=== PATIENT | female | born 1990 | race Two or more races ===

== ENCOUNTER 2022-11-17 15:25 | Outpatient (CLI) | payer OTHER | END 2022-11-17 17:58 | disposition home or self-care (01) | LOC: PRENATAL 15:25 | PROVIDERS: ATTEND Obstetrics & Gynecology Maternal & Fetal Medicine | DX: O36.80X0 Pregnancy with inconclusive fetal viability, not applicable or unspecified (principal); Z36.9 Encounter for antenatal screening, unspecified; Z36.82 Encounter for antenatal screening for nuchal translucency; Z3A.12 12 weeks gestation of pregnancy ==

== ENCOUNTER 2023-01-12 08:00 | Outpatient (CLI) | payer OTHER | END 2023-01-12 09:26 | disposition home or self-care (01) | LOC: PRENATAL 08:00 | PROVIDERS: ATTEND Obstetrics & Gynecology Maternal & Fetal Medicine | DX: O35.3XX0 Maternal care for (suspected) damage to fetus from viral disease in mother, not applicable or unspecified (principal); O34.80 Maternal care for other abnormalities of pelvic organs, unspecified trimester; O43.90 Unspecified placental disorder, unspecified trimester; O44.00 Complete placenta previa NOS or without hemorrhage, unspecified trimester; Z3A.20 20 weeks gestation of pregnancy ==

== ENCOUNTER 2023-02-28 10:26 | Emergency (ER) | payer OTHER ==
[~2023-02-28] VITALS: Ht 165.1 cm; Wt 71.7 kg
[2023-02-28] MEDS ORDERED: ALLEGRA ALLERG180 MG PO (10:59)
[2023-02-28] MEDS ORDERED: DUI500 PO (10:59)
== END 2023-02-28 13:41 | disposition home or self-care (01) ==
LOC: ER 10:27
DX: O26.892 Other specified pregnancy related conditions, second trimester (principal); Z3A.27 27 weeks gestation of pregnancy; S90.464A Insect bite (nonvenomous), right lesser toe(s), initial encounter; W57.XXXA Bitten or stung by nonvenomous insect and other nonvenomous arthropods, initial encounter; Y93.9 Activity, unspecified; Y92.9 Unspecified place or not applicable; Y99.9 Unspecified external cause status

== ENCOUNTER 2023-03-09 09:35 | Outpatient (CLI) | payer OTHER ==
[~2023-03-09 09:35] MED LIST: ALLEGRA ALLERG180 MG PO; DUI500 PO
== END 2023-03-09 09:38 | disposition home or self-care (01) ==
LOC: PRENATAL 09:35
PROVIDERS: ATTEND Obstetrics & Gynecology Maternal & Fetal Medicine
DX: O26.849 Uterine size-date discrepancy, unspecified trimester (principal); O34.80 Maternal care for other abnormalities of pelvic organs, unspecified trimester; O43.90 Unspecified placental disorder, unspecified trimester; Z3A.28 28 weeks gestation of pregnancy

== ENCOUNTER 2023-04-02 14:41 | Outpatient (CLI) | payer OTHER ==
[2023-04-02] MEDS ORDERED: PRENATAL TABLE1 EAC4 PO (14:53)
[2023-04-02 15:24] LABS: HEMATOCRIT 35.9 % (36.0-45.00); MEAN CELL VOLUME 94.9 fL (80.00-100.00); MEAN CORPUSCULAR HEMOGLOBIN 31.8 pg (27.00-32.0); MEAN CORPUSCULAR HGB CONC 33.5 g/dl (32.0-36.0); PH,URINE 6.5 (5.0-8.0); PLATELET COUNT 263 K/uL (150-450); RED BLOOD COUNT 3.78 M/uL (4.00-6.00); RED CELL DISTRIBUTION WIDTH 12.9 % (11.5-14.5); URINE APPEARANCE Cloudy; URINE BILIRRUBIN Negative (NEGATIVE); URINE BLOOD Large; URINE COLOR Orange; URINE GLUCOSE Negative (NEGATIVE); URINE LEUKOCYTE Trace; URINE NITRATE Negative; URINE PROTEIN 30 (NEGATIVE); URINE UROBILINOGEN 0.2 E.U./dl
[2023-04-02 15:28] LABS: URINE BACTERIA 1421.1 uL (0.0-1933); URINE EPITHELIAL CELLS 81.7 uL (0.0-38.8); URINE RBC 338.5 uL (0.0-20.8); URINE WBC 24.7 uL (0.0-23.2)
[2023-04-02 15:49] LABS: URINE YEAST NEGATIVE /hpf
== END 2023-04-04 08:08 | disposition home or self-care (01) ==
LOC: OBS/DEL 14:41
PROVIDERS: Specialist; ATTEND Student in an Organized Health Care Education/Training Program
DX: O26.893 Other specified pregnancy related conditions, third trimester (principal); Z3A.31 31 weeks gestation of pregnancy

== ENCOUNTER 2023-04-13 09:24 | Outpatient (CLI) | payer OTHER ==
[~2023-04-13 09:24] MED LIST changes: +PRENATAL TABLE1 EAC4 PO
== END 2023-04-13 09:26 | disposition home or self-care (01) ==
LOC: PRENATAL 09:24
PROVIDERS: ATTEND Obstetrics & Gynecology Maternal & Fetal Medicine
DX: O26.849 Uterine size-date discrepancy, unspecified trimester (principal); O36.8199 Decreased fetal movements, unspecified trimester, other fetus; O43.90 Unspecified placental disorder, unspecified trimester; O26.859 Spotting complicating pregnancy, unspecified trimester; Z3A.33 33 weeks gestation of pregnancy

== ENCOUNTER 2023-05-06 11:20 | Outpatient (CLI) | payer OTHER | END 2023-05-06 11:22 | disposition home or self-care (01) | LOC: PRENATAL 11:20 | PROVIDERS: ATTEND Obstetrics & Gynecology Maternal & Fetal Medicine | DX: O26.849 Uterine size-date discrepancy, unspecified trimester (principal); O36.8199 Decreased fetal movements, unspecified trimester, other fetus; O34.80 Maternal care for other abnormalities of pelvic organs, unspecified trimester; O43.90 Unspecified placental disorder, unspecified trimester; O36.5990 Maternal care for other known or suspected poor fetal growth, unspecified trimester, not applicable or unspecified; Z3A.36 36 weeks gestation of pregnancy ==

== ENCOUNTER 2023-05-23 13:45 | Inpatient (IN) | payer OTHER ==
[~2023-05-23] VITALS: Ht 165.1 cm; Wt 79.8 kg
[2023-05-23 16:44] LABS: PH,URINE 6.5 (5.0-8.0); URINE APPEARANCE Cloudy; URINE BILIRRUBIN Negative (NEGATIVE); URINE BLOOD Negative; URINE COLOR Yellow; URINE GLUCOSE Negative (NEGATIVE); URINE LEUKOCYTE Trace; URINE NITRATE Negative; URINE PROTEIN Negative (NEGATIVE); URINE UROBILINOGEN 0.2 E.U./dl
[2023-05-23 16:45] LABS: URINE BACTERIA 5410.2 uL (0.0-1933); URINE EPITHELIAL CELLS 68.6 uL (0.0-38.8); URINE RBC 4.4 uL (0.0-20.8); URINE WBC 100.8 uL (0.0-23.2)
[2023-05-23 16:48] LABS: HEMATOCRIT 37.2 % (36.0-45.00); HEMOGLOBIN 12.8 g/dL (12.0-15.00); MEAN CELL VOLUME 95.2 fL (80.00-100.00); MEAN CORPUSCULAR HEMOGLOBIN 32.7 pg (27.00-32.0); MEAN CORPUSCULAR HGB CONC 34.4 g/dl (32.0-36.0); PLATELET COUNT 235 K/uL (150-450); RED BLOOD COUNT 3.91 M/uL (4.00-6.00); RED CELL DISTRIBUTION WIDTH 13.2 % (11.5-14.5)
[2023-05-23 17:03] LABS: INR < 0.93; PARTIAL THROMBOPLASTIN TIME 32.1 SECONDS (22.0-34.0); PROTHROMBIN TIME 9.6 SECONDS (9.0-11.5)
[2023-05-23 17:10] LABS: ALBUMIN 2.8 gm/dL (3.4-5.0); BILIRUBIN TOTAL 0.58 mg/dL (0.3-1.2); CALCIUM 9.1 mg/dL (8.5-10.1); CREATININE SERUM 0.72 mg/dL (0.55-1.02); GFR 93.87; GLOBULINA 3.7 G/DL (2.4-3.5); POTASSIUM 4.26 mEq/L (3.5-5.1); TOTAL PROTEIN 6.5 gm/dL (6.4-8.2)
[2023-06-05] MEDS ORDERED: AMPICILLIN SODIUM 2,000 MG VIAL ONE (13:31)
[2023-06-05] MEDS ORDERED: AMPICILLIN SODIUM 2,000 MG VIAL IV ONE (14:00)
[2023-06-05] MEDS ORDERED: RINGERS SOLUTION,LACTATED 1,000 ML IV SCH (14:00)
[2023-06-05] MEDS ORDERED: LIDOCAINE HCL 1% 200MG/20ML VIAL IJ ONE (14:07)
[2023-06-05] MEDS ORDERED: OXYTOCIN 20 UNITS/1000ML RL PIGGYBAG IV ONE (14:07)
[2023-06-05] MEDS ORDERED: CHLORHEXIDINE GLUCONATE 120 ML BOTTLE TOP ONE (14:07)
[2023-06-05] MEDS ORDERED: ERYTHROMYCIN BASE 1 GM TUBE OP ONE (14:07)
[2023-06-05] MEDS ORDERED: AMPICILLIN SODIUM 1,000 MG VIAL IV SCH (17:00)
[2023-06-05] MEDS ORDERED: OXYTOCIN 20 UNITS/500ML RL PIGGYBAG IV ONE (19:10)
[2023-06-05] MEDS ORDERED: OXYTOCIN 500 ML IV SCH (19:30)
[2023-06-06] MEDS ORDERED: OXYTOCIN 10 UNITS/ML VIAL ONE (02:03)
[2023-06-06] MEDS ORDERED: ERYTHROMYCIN BASE 3.5 GM OINT...G. OP ONE (02:04)
[2023-06-06] MEDS ORDERED: CEFAZOLIN SODIUM 1,000 MG VIAL IV STA (02:23)
[2023-06-06] MEDS ORDERED: ERYTHROMYCIN BASE 1 GM TUBE OP ONE (02:30)
[2023-06-06] MEDS ORDERED: OXYTOCIN 10 UNITS/ML VIAL IV ONE (02:30)
[2023-06-06] MEDS ORDERED: MEPERIDINE HCL/PF 25 MG/ML VIAL IV PRN (03:15)
[2023-06-06] MEDS ORDERED: ONDANSETRON HCL 2 MG/ML VIAL IV ONE (03:15)
[2023-06-06] MEDS ORDERED: MORPHINE SULFATE 4 MG in 0.9 % SODIUM CHLORIDE 9 ML IV PRN (03:15)
[2023-06-06] MEDS ORDERED: MEPERIDINE HCL/PF 50 MG/ML VIAL IM PRN (04:30)
[2023-06-06] MEDS ORDERED: OXYTOCIN 1,000 ML IV SCH (05:00)
[2023-06-06] MEDS ORDERED: PROMETHAZINE HCL 25 MG/ML AMPUL IM SCH (05:00)
[2023-06-06 15:28] LABS: HEMATOCRIT 29.3 % (36.0-45.00); HEMOGLOBIN 10.1 g/dL (12.0-15.00); MEAN CELL VOLUME 97.1 fL (80.00-100.00); MEAN CORPUSCULAR HEMOGLOBIN 33.6 pg (27.00-32.0); MEAN CORPUSCULAR HGB CONC 34.6 g/dl (32.0-36.0); PLATELET COUNT 192 K/uL (150-450); RED BLOOD COUNT 3.01 M/uL (4.00-6.00); RED CELL DISTRIBUTION WIDTH 12.9 % (11.5-14.5)
[2023-06-06] MEDS ORDERED: SIMETHICONE 125 MG CAPSULE PO SCH (18:00)
[2023-06-06] MEDS ORDERED: OxyCODONE HCL/APAP UD (PERCOCET) PO PRN (21:00)
[2023-06-07] MEDS ORDERED: DOCUSATE SODIUM 100MG CAP PO SCH (09:00)
[2023-06-07] MEDS ORDERED: PNV,CALCIUM 72/IRON/FOLIC ACID 1 TAB TABLET PO SCH (09:00)
[2023-06-09] MEDS ORDERED: IBU800 MG PO (08:13)
[2023-06-09] MEDS ORDERED: COLACE100 MG PO (08:13)
[2023-06-09] MEDS ORDERED: SIMETHICONE125 M1 PO (08:14)
== END 2023-06-09 13:57 | disposition home or self-care (01) | DRG 788 ==
LOC: OB/GYN 06-01 13:45 → LDR 06-05 13:11 → OB/GYN 06-06 04:49
PROVIDERS: ADMIT Obstetrics & Gynecology; ATTEND Obstetrics & Gynecology
PROC: 4A1HXCZ Monitoring of Products of Conception, Cardiac Rate, External Approach (ICD-10-PCS; 2023-06-05)
PROC: 10D00Z1 Extraction of Products of Conception, Low, Open Approach (ICD-10-PCS; principal; 2023-06-06 01:30)
DX: O62.1 Secondary uterine inertia (principal); O43.123 Velamentous insertion of umbilical cord, third trimester; O43.193 Other malformation of placenta, third trimester; O99.824 Streptococcus B carrier state complicating childbirth; O48.0 Post-term pregnancy; Z3A.40 40 weeks gestation of pregnancy; Z37.0 Single live birth; Z20.822 Contact with and (suspected) exposure to COVID-19